=== PATIENT | male | born 1955 | race Caucasian/White ===

== ENCOUNTER 2017-11-18 13:20 | Day surgery (SDC) | payer BC, OTHER ==
[2017-11-18] MEDS ORDERED: SIMETHICONE 40 MG/0.6 ML 30 ML BOTTLE MC ONE (13:21)
[2017-11-18] MEDS ORDERED: PROPOFOL 200 MG/20 ML BOTTLE IV ONE (13:21)
[2017-11-18] MEDS ORDERED: IV LACTATED RINGERS SOLUTION 1,000 ML BAG IV ONE (13:21)
[2017-11-18 14:20] LABS: BASOPHILS % (AUTO) 0.8 % (0.0-2.0); EOSINOPHILS # (AUTO) 0.1 K/uL (0.0-0.7); EOSINOPHILS % (AUTO) 2.2 % (0.0-7.0); HEMATOCRIT 44.3 % (36.7-47.1); HEMOGLOBIN 15.2 g/dL (12.5-16.3); LYMPHOCYTES # (AUTO) 1.7 K/uL (20.0-40.0); LYMPHOCYTES % (AUTO) 27.9 % (20.5-51.5); MEAN CORPUSCULAR HEMOGLOBIN 32.9 uug (23.8-33.4); MEAN CORPUSCULAR HGB CONC 34 g/dL (32.5-36.3); MEAN CORPUSCULAR VOLUME 95.9 fL (73.0-96.2); MONOCYTES # (AUTO) 0.5 K/uL (2.0-10.0); MONOCYTES % (AUTO) 8.4 % (0.0-11.0); NEUTROPHILS # (AUTO) 3.8 K/uL (1.8-8.9); NEUTROPHILS % (AUTO) 60.7 % (38.5-71.5); PLATELET COUNT (AUTO) 169 K/uL (152-348); RED BLOOD CELL COUNT(AUTO) 4.62 MIL/uL (4.06-5.63); WHITE BLOOD COUNT (AUTO) 6.2 K/uL (3.6-10.2)
[2017-11-18 14:38] LABS: *BILIRUBIN,URIN 1+ (NEGATIVE); *BLOOD, URINE Trace-lysed (NEGATIVE); *CLARITY,URINE CLEAR (CLEAR); *KETONES,URINE 2+ (NEGATIVE); *PROTEIN,URINE NEGATIVE (NEGATIVE); *UROBILINOGEN,URINE 0.2 E.U./dl (NORMAL); LEUKOCYTE ESTERASE ,URINE NEGATIVE (NEGATIVE); NITRITE, URINE NEGATIVE (NEGATIVE); PH,URINE 5.5 (5.0-8.0); UGLUCOSE NEGATIVE (NEGATIVE)
[2017-11-18 14:48] LABS: POTASSIUM 3.6 mmol/L (3.5-5.1)
[2017-11-18 14:53] LABS: TOTAL PROTEIN, SERUM 7.2 g/dL (6.4-8.2)
[2017-11-18 14:55] LABS: *COLOR,URINE DARK YELLOW (YELLOW)
[2017-11-18 15:00] LABS: MUCUS,URINE FEW /LPF (0-FEW); WBC,URINE NONE SEEN /HPF (0-3)
[2017-11-18] MEDS ORDERED: MIDAZOLAM HCL 2 MG/2 ML VIAL ONE (16:50)
[2017-11-18] MEDS ORDERED: FENTANYL CITRATE 100 MCG/2 ML AMPUL ONE (16:50)
== END 2017-11-18 18:11 | disposition home or self-care (01) ==
LOC: DS 13:20
PROVIDERS: ATTEND Internal Medicine Gastroenterology
DX: D12.4 Benign neoplasm of descending colon (principal); F32.9 Major depressive disorder, single episode, unspecified; K64.8 Other hemorrhoids; Z90.49 Acquired absence of other specified parts of digestive tract; Z98.890 Other specified postprocedural states; M19.90 Unspecified osteoarthritis, unspecified site; Z88.8 Allergy status to other drugs, medicaments and biological substances; Z86.010 Personal history of colon polyps; K57.30 Diverticulosis of large intestine without perforation or abscess without bleeding
CPT/HCPCS: 36415; 45380; 71045; 80053; 81001; 85025; 85730; 93005; A4217; A4663; J2250; J3010; J3490; J7120 ×2